=== PATIENT | male | born 1980 | race African-American/Black ===

== ENCOUNTER 2017-01-10 02:45 | Emergency (ER) | payer OTHER ==
[~2017-01-10] VITALS: Ht 188 cm; Wt 95.7 kg
--- NOTE | 2017-01-10 03:43 | ED GI/GU/ABDOMINAL COMPLAINT ---
History of Present Illness General Chief Complaint: General Adult Stated Complaint: "PER PT I THINK I HAVE STD" Source: patient Exam Limitations: no limitations Vital Signs & Intake/Output Vital Signs & Intake/Output Vital Signs Date Time Temp Pulse Resp B/P Pulse O2 O2 Flow FiO2 Ox Delivery Rate 01/10 0307 98.0 63 18 148/89 99 Room Air Allergies Uncoded Allergies: SEAFOOD (Intermediate, HIVES 01/10/17) Reconcile Medications Doxycycline Hyclate 100 MG TABLET 1 TAB PO BID urologic Triage Note: PT FROM HOME C/O "I THINK I HAVE AN STD, I TALKED TO MY ALICIAY WHO I WAS WITH AND SHE TOLD ME SHE WENT TO THE DOCTOR AND HAD AN STD, I HAVE HAD DISCHARGE AND SOME PAIN FROM MY PENIS" THIS RN ASKED IF "DANIEL" WAS THE GIRL THAT CHECKED INTO THE ER A PT WITH THIS PT AND PT STATED "NO THATS MY OTHER SHORTY" PT ASKED THIS RN TO TELL THE OTHER PT HE CHECKED IN WITH TO TELL HER "EVERYTHING IS FINE IF YOU TAKE THIS MEDICINE".. Triage Nurses Notes Reviewed? yes Onset: Gradual Duration: day(s):, waxing and waning Timing: recent history Quality/Severity: burning Location: urethral Radiation: no radiation Activities at Onset: sexual activity Prior Abdominal Problems: none Sexual Orientation: Heterosexual Use of Protection: No Modifying Factors: Worsens With: urinating. Associated Symptoms: PENILE DISCHARGE, NO TESTICULAR PAIN HPI: 28-year-old gentleman in prior good health presents with penile discharge. He states that he had intercourse with a woman who then was later diagnosed with a sexually transmitted infection. He has noted for the past 2-3 days of milky white discharge from his penis. He has mild burning in his urethra. He has no fever chills testicular pain. He is otherwise well. Past History Travel History Traveled to [place] past 21 day No Medical History Any Pertinent Medical History? see below for history Surgical History Surgical History: non-contributory Psychosocial History What is your primary language Mongolian Tobacco Use: Never used ETOH Use: occasional use Illicit Drug Use: marijuana Family History Hx Contributory? No Review of Systems Review of Systems Constitutional: Reports: no symptoms. EENTM: Reports: no symptoms. Respiratory: Reports: no symptoms. Cardiovascular: Reports: no symptoms. GI: Reports: no symptoms. Genitourinary: Reports: no symptoms. Musculoskeletal: Reports: no symptoms. Skin: Reports: no symptoms. Neurological/Psychological: Reports: no symptoms. Hematologic/Endocrine: Reports: no symptoms. Immunologic/Allergic: Reports: no symptoms. All Other Systems: Reviewed and Negative Physical Exam Physical Exam General Appearance: well developed/nourished, no apparent distress Head: atraumatic, normal appearance Eyes: Bilateral: normal appearance. Ears, Nose, Throat, Mouth: hearing grossly normal Neck: normal inspection Respiratory: normal breath sounds Cardiovascular: regular rate/rhythm Gastrointestinal: normal bowel sounds, soft, non-tender, no organomegaly Male Genitals: normal genitalia, SMALL AMOUNT OF URETHRAL DISCHARGE Extremities: normal range of motion Neurologic/Psych: no motor/sensory deficits, awake, alert, oriented x 3 Skin: intact, normal color, warm/dry Core Measures ACS in differential dx? No Severe Sepsis Present: No Septic Shock Present: No Progress Differential Diagnosis: uti VERSUS URETHRITIS VERSUS OTHER Plan of Care: Orders Procedure Date/time Status GC DNA PROBE 01/10 0301 Active Initial ED EKG: none Departure Departure Disposition: HOME OR SELF CARE Condition: Stable Clinical Impression Primary Impression: Sexually transmitted infection Referrals: PATIENT HAS NO PRIMARY CARE DR (PCP/Family) Departure Forms: Customer Survey General Discharge Information Prescriptions: Current Visit Scripts Doxycycline Hyclate 1 TAB PO BID #20 TAB Comments Patient given ceftriaxone and azithromycin as well as a prescription for Doxy. I encouraged him to follow-up with his primary care doctor to pursue HIV testing as well as other STi'S.
[2017-01-10] MEDS ORDERED: DOXYCYCLINE HY100 M4 PO (04:03)
[2017-01-10 04:44] VITALS: BP 140/88
== END 2017-01-10 04:44 ==
LOC: ERH 02:45
DX: A64 Unspecified sexually transmitted disease (principal)
CPT/HCPCS: 87491; 87591; 96372; J0696

== ENCOUNTER 2017-04-02 20:38 | Emergency (ER) | payer OTHER ==
[~2017-04-02] VITALS: Ht 188 cm; Wt 96.2 kg
[~2017-04-02 20:38] MED LIST: DOXYCYCLINE HY100 M4 PO
--- NOTE | 2017-04-02 21:33 | ED GI/GU/ABDOMINAL COMPLAINT ---
History of Present Illness General Chief Complaint: Male Genitourinary Problems Stated Complaint: STD? Source: patient Exam Limitations: no limitations Vital Signs & Intake/Output Vital Signs & Intake/Output Vital Signs Date Time Temp Pulse Resp B/P B/P Pulse O2 O2 Flow FiO2 Mean Ox Delivery Rate 04/02 2228 98.4 64 18 124/74 97 Room Air Room Air 04/02 2050 98.3 62 18 120/75 97 Room Air Allergies Coded Allergies: shellfish derived (Severe, HIVES 04/02/17) Reconcile Medications Doxycycline Hyclate 100 MG TABLET 1 TAB PO BID urologic Triage Note: REPORTS PENIL DISCHARGE AFTER HAVING UNPROTECTED SEX WITH A FEMALE WHOM WAS RECENTLY TREATED FOR CHLAMYDIA. Triage Nurses Notes Reviewed? yes HPI: Patient is a 36-year-old male presents for treatment of his disease. Patient reports he had sexual intercourse couple weeks ago with someone that was positive for chlamydia and possibly gonorrhea. Patient has been having urethral discharge 1 week. Pain is 0 out of 10. Patient denies abdominal pain, fevers, chills, nausea, vomiting. Past History Travel History Traveled to [place] past 21 day No Medical History Any Pertinent Medical History? none Surgical History Surgical History: non-contributory Psychosocial History What is your primary language Hungarian Tobacco Use: Current Daily Use Daily Tobacco Use Amount/Type: => 5 Cigarettes daily Family History Hx Contributory? No Review of Systems Review of Systems Constitutional: Denies: chills, fever. EENTM: Reports: no symptoms. Cardiovascular: Denies: chest pain. GI: Denies: abdominal pain. Genitourinary: Reports: see HPI. Musculoskeletal: Reports: no symptoms. Skin: Reports: no symptoms. Neurological/Psychological: Reports: no symptoms. Hematologic/Endocrine: Reports: no symptoms. Immunologic/Allergic: Reports: no symptoms. Physical Exam Physical Exam General Appearance: well developed/nourished, alert, awake Head: atraumatic, normal appearance Eyes: Bilateral: normal appearance. Ears, Nose, Throat, Mouth: hearing grossly normal Neck: normal inspection, full range of motion Respiratory: no respiratory distress Gastrointestinal: nondistended Back: normal range of motion Extremities: normal range of motion Neurologic/Psych: no motor/sensory deficits, awake, alert, oriented x 3, normal gait, normal mood/affect Skin: intact, normal color, warm/dry Core Measures ACS in differential dx? No Severe Sepsis Present: No Septic Shock Present: No Progress Differential Diagnosis: STD, UTI/pyelo Plan of Care: Orders Procedure Date/time Status CHLAMYDIA-GC DNA PROBE 04/02 2057 Active Microbiology 04/02 2138 URINE ROUT: GC DNA Probe - RECD 04/02 2138 URINE ROUT: Chlamydia DNA Probe (SUSANNA) - RECD Initial ED EKG: none Departure Departure Disposition: HOME OR SELF CARE Condition: Stable Clinical Impression Primary Impression: Sexually transmitted disease (STD) Referrals: PATIENT HAS NO PRIMARY CARE DR (PCP/Family) Additional Instructions: It will take 2-3 days to receive the results of your test. You will be called if they are positive. Do not have sexual intercourse for 1 week to allow for the antibiotics to work. Return to the ER if fevers, abdominal pain, or worsening of symptoms. Departure Forms: Customer Survey General Discharge Information
[2017-04-02 22:28] VITALS: BP 124/74
== END 2017-04-02 22:30 ==
LOC: ERH 20:38
DX: A64 Unspecified sexually transmitted disease (principal)
CPT/HCPCS: 87491; 87591; 96372; J0456; J0696